=== PATIENT | female | born 1965 | race Caucasian/White ===

== ENCOUNTER 2018-03-24 23:23 | Emergency (ER) | payer BC ==
[~2018-03-24] VITALS: Ht 157.5 cm; Wt 68.0 kg
[~2018-03-24 23:23] MED LIST: ASPI81CH PO; ATOR80 PO; BUPR150ER PO; FISH1000 PO; INSLI100I; INSUASPI; INSULANPEN; Lisinopril2.5 MG; SYNTHROID175 MCG PO; VENL75ER PO
[2018-03-24] MEDS ORDERED: METF500C PO (23:45)
[2018-03-24 23:50] LABS: Source, Urine Clean Catch
[2018-03-24 23:52] LABS: Appearance, Urine Clear (Clear); Bilirubin, Urine Neg (Neg); Blood, Urine 2+ (Neg); Color, Urine Yellow (P-Yellow); Glucose Qualitative, Urine Neg (Neg); Ketones, Urine Neg (Neg); Leukocyte Esterase, Urine 3+ (Neg); Nitrite, Urine Neg (Neg); Protein, Urine Neg (Neg); Specific Gravity, Urine 1.005 (1.003-1.022); Urobilinogen, Urine NORM (Normal)
[2018-03-24 23:59] LABS: White Blood Cells, Urine 25-50 /hpf (0-5)
[2018-03-25] LABS: Bacteria Mod /hpf; Red Blood Cells, Urine 0-2 /hpf (0-2); Squamous Epithelial Cells Few /hpf (Few)
[2018-03-25] MEDS ORDERED: CEPH500 PO (00:06)
[2018-03-25] MEDS ORDERED: Pyridium100 MG PO (00:06)
== END 2018-03-25 00:21 | disposition home or self-care (01) ==
LOC: ER 23:23
PROVIDERS: Emergency Medicine
DX: N39.0 Urinary tract infection, site not specified (principal); Z88.0 Allergy status to penicillin; Z79.899 Other long term (current) drug therapy; Z79.4 Long term (current) use of insulin; E11.9 Type 2 diabetes mellitus without complications; I10 Essential (primary) hypertension; E03.9 Hypothyroidism, unspecified; F32.9 Major depressive disorder, single episode, unspecified; E78.00 Pure hypercholesterolemia, unspecified
CPT/HCPCS: 81001; 87077; 87086; 87186; 99284

== ENCOUNTER 2018-04-07 18:31 | Emergency (ER) | payer BC ==
[~2018-04-07] VITALS: Ht 157.5 cm; Wt 68.0 kg
[~2018-04-07 18:31] MED LIST changes: +CEPH500 PO; +METF500C PO; +Pyridium100 MG PO
[2018-04-07 19:23] LABS: Source, Urine Clean Catch
[2018-04-07 19:29] LABS: Appearance, Urine Clear (Clear); Blood, Urine Neg (Neg); Color, Urine Amber (P-Yellow); Glucose Qualitative, Urine Neg (Neg); Ketones, Urine Neg (Neg); Leukocyte Esterase, Urine Neg (Neg); Nitrite, Urine Pos (Neg); Protein, Urine 2+ (Neg); Urobilinogen, Urine 4+ (Normal)
[2018-04-07 19:40] LABS: Bilirubin, Urine 3+ (Neg)
[2018-04-07 19:41] LABS: Bacteria Mod /hpf; Red Blood Cells, Urine 0-2 /hpf (0-2); Squamous Epithelial Cells Few /hpf (Few)
[2018-04-07] MEDS ORDERED: ASPI81CH PO (19:47)
[2018-04-07] MEDS ORDERED: BASAGLAR K100 UNIT/1 (19:47)
[2018-04-07] MEDS ORDERED: Macrodantin100 MG PO (19:54)
== END 2018-04-07 20:06 | disposition home or self-care (01) ==
LOC: ER 18:31
PROVIDERS: Emergency Medicine
DX: N39.0 Urinary tract infection, site not specified (principal); Z88.0 Allergy status to penicillin; Z79.899 Other long term (current) drug therapy; Z79.4 Long term (current) use of insulin
CPT/HCPCS: 81001; 87086; 99283

== ENCOUNTER 2019-04-02 02:47 | Emergency (ER) | payer BC ==
[~2019-04-02] VITALS: Ht 157.5 cm; Wt 68.0 kg
[~2019-04-02 02:47] MED LIST changes: +BASAGLAR K100 UNIT/1; +Macrodantin100 MG PO
[2019-04-02 03:22] LABS: Source, Urine Clean Catch
[2019-04-02 03:24] LABS: Appearance, Urine Clear (Clear); Bilirubin, Urine 2+ (Neg); Blood, Urine 5+ (Neg); Color, Urine Orange (P-Yellow); Glucose Qualitative, Urine Neg (Neg); Ketones, Urine Neg (Neg); Leukocyte Esterase, Urine 3+ (Neg); Nitrite, Urine Pos (Neg); Protein, Urine 1+ (Neg); Urobilinogen, Urine 2+ (Normal)
[2019-04-02 03:30] LABS: Bacteria Many /hpf; Red Blood Cells, Urine 0-2 /hpf (0-2); Squamous Epithelial Cells Few /hpf (Few); White Blood Cells, Urine 50-100 /hpf (0-5)
[2019-04-02] MEDS ORDERED: CEFP200 PO (03:57)
[2019-04-02] MEDS ORDERED: Pyridium200 MG PO (03:57)
== END 2019-04-02 04:22 | disposition home or self-care (01) ==
LOC: ER 02:47
PROVIDERS: Emergency Medicine
DX: N39.0 Urinary tract infection, site not specified (principal); Z88.0 Allergy status to penicillin; Z79.899 Other long term (current) drug therapy; Z79.4 Long term (current) use of insulin; Z79.82 Long term (current) use of aspirin; E10.9 Type 1 diabetes mellitus without complications; E03.9 Hypothyroidism, unspecified
CPT/HCPCS: 81001; 87077; 87086; 87186; 99283; A9270-GY

== ENCOUNTER → 2019-10-14 | Outpatient (CLI) | payer BC ==
[~2019-10-14] MED LIST changes: +CEFP200 PO; +Pyridium200 MG PO
== END ==
LOC: LAB SHORT 17:53 → LAB 17:53
DX: N95.2 Postmenopausal atrophic vaginitis (principal)
CPT/HCPCS: 87070; 87205